=== PATIENT | female | born 1950 | race Two or more races ===

== ENCOUNTER 2024-07-15 22:35 | Emergency (ER) | payer MEDICARE, MEDICAID, SELFPAY ==
[2024-07-15 23:35] VITALS: BP 155/88; PULSE 68; RESP 18; TEMP 36.8; O2SAT 98
--- NOTE | 2024-07-15 23:49 | XR_ITS ---
Examination: Wrist, right 3 views Technique: Wrist AP, oblique, lateral 3 views Date and time of exam: July 16, 2024 0025 hrs. Indications: Patient fell today with injury to the wrist, wrist pain. Findings: Suspicious on the lateral view for nondisplaced fracture of the dorsal distal radius No displacement Carpal bones intact Impression: Recommend 1-2 day follow-up films of the wrist to exclude nondisplaced fracture dorsal distal radius
--- NOTE | 2024-07-15 23:49 | XR_ITS ---
Examination: CT cervical spine without contrast 2-D sagittal reconstructions 2-D coronal reconstructions 3-D reconstructions. Exam date and time:July 16, 2024 0019 hrs. Indications: Patient fell backwards with injury to the neck, neck pain CTDI:vol (mGy) 44.8 DLP: (mGycm) 866 Technique: Multiple 2 mm axial sections of the cervical spine have been obtained. The coronal and sagittal reconstructions have been obtained. 3-D reconstructions have been obtained. Low dose protocols were performed. One or more of the following dose reduction techniques were used; automated exposure control, adjustment of the mA and/or KV according to patient size, use of iterative reconstruction technique. Findings: Axial sections demonstrate intact base of the skull. C1 exhibit satisfactory relationship to the odontoid. No acute cervical vertebral body fracture seen. Alignment posterior spinous processes satisfactory. Impression: No acute cervical fracture.
--- NOTE | 2024-07-15 23:49 | XR_ITS ---
Examination: CT brain head without contrast. 2-D sagittal coronal reconstructions Date and time of exam:July 2024 0019 hrs. Indications: Patient fell today with injury to the back of the head, head pain CTDI: vol (mGy):44.8 DLP: (mGycm):866 Technique: Multiple CT axial sections of the brain have been obtained, 5 mm slice thickness. Contrast has not been administered. 2-D sagittal, coronal reconstructions have been obtained Low dose protocols were performed. One or more of the following dose reduction techniques were used; automated exposure control, adjustment of the mA and/or KV according to patient size, use of iterative reconstruction technique. Findings: No significant ventricular enlargement. Intra-axial or extra-axial hemorrhage density is not seen. No mass effect or midline shift Basal cisterns are not remarkable. Fourth ventricle is midline. Cranial vault intact. Impression: Negative for acute hemorrhage, mass effect or midline shift
--- NOTE | 2024-07-15 23:50 | PD.EDRME ---
Rapid Medical Screening Exam [facility] Arrival date/time: 07/15/24 22:35 74F with history of HTN presents to ED with head and R wrist pain after a dog barked and scared her, which made her fall. Chief Complaint: Fall Vital signs: Vital Signs Temperature 98.3 F 07/15/24 23:35 Pulse Rate 68 07/15/24 23:35 Respiratory Rate 18 07/15/24 23:35 Blood Pressure 155/88 H 07/15/24 23:35 Pulse Oximetry (%) 98 07/15/24 23:35 Oxygen Delivery Method Room Air 07/15/24 23:35
--- NOTE | 2024-07-16 01:44 | PRELIM_ITS ---
CT scan of the head without intravenous contrast (axial sections with sagittal and coronal reformats) July 16, 2024 0019 hours Clinical History: Fall. Findings: There is no evidence of intracranial hemorrhage, mass effect or midline shift. There are mild periventricular white matter hypodensities, likely representing chronic small vessel ischemia. There is mild volume loss. The calvarium is intact. There is moderate mucosal thickening in the left maxillary sinus. There is mild mucosal thickening in bilateral ethmoid sinuses. The mastoid air cells and the other visualized paranasal sinuses are clear. Impression: No evidence of intracranial hemorrhage, midline shift or calvarial fracture. Periventricular chronic small vessel ischemia and volume loss. Report Electronically Signed By: Wero Finney 07/16/2024 1:43:31 AM [EST]
--- NOTE | 2024-07-16 01:46 | PRELIM_ITS ---
CT scan of the cervical spine without intravenous contrast (axial sections with sagittal and coronal reformats) July 16, 2024 0019 hours Clinical History: Fall. Findings: The bones are osteopenic. There is no fracture or traumatic subluxation. Moderate degenerative changes are noted in the form of multilevel marginal osteophytes, decreased disc spaces and facet arthropathy. C3-C4 through C6-C7 disc osteophyte complexes are noted with associated uncinate hypertrophy and facet arthropathy causing moderate spinal canal and moderate to marked bilateral neural foraminal narrowing. The prevertebral soft tissues are unremarkable. Impression: No evidence of fracture or traumatic subluxation. Moderate degenerative changes as described above. Consider elective followup with MRI. Report Electronically Signed By: Wero Finney 07/16/2024 1:46:03 AM [EST]
[2024-07-16 01:57] VITALS: BP 163/90; PULSE 73; RESP 18; TEMP 36.8; O2SAT 98
[2024-07-16 01:59] VITALS: O2SAT 100
[2024-07-16 02:00] VITALS: BP 156/80; PULSE 70; RESP 16; O2SAT 99
--- NOTE | 2024-07-16 02:07 | EDNOTE_ITS ---
ED Fall Injury RME/HPI General Chief Complaint: Fall Stated Complaint: FELL, HIT HEAD, RIGHT WRIST INJURY Time Seen by Provider: 07/16/24 01:59 Arrival date/time: 07/15/24 22:35 RME / HPI RME / HPI Narrative: 07/15/24 22:35 74F with history of HTN presents to ED with head and R wrist pain after a dog barked and scared her, which made her fall. Dr. Barrios?s Main ED Evaluation: 74yo female with a history of HTN presents to the ED for a fall. Patient states she was getting out of a car when a dog scared her, reporting she stumbled back and fell. She states she hit her head, but denies any loss of consciousness. She endorses having right wrist pain and a posterior headache. She denies any neck pain, chest pain, abdominal pain, shortness of breath or any other associated symptoms. No known allergies. Related Data Previous Rx's ?Medication ?Instructions ?Recorded cyclobenzaprine 10 mg tablet 10 mg PO TID #30 tabs 02/23 ibuprofen 600 mg tablet 600 mg PO TID #30 tabs 08/14 acetaminophen 500 mg capsule 1,000 mg (2 x 500 mg) PO Q6H PRN 07/16/24 pain #40 caps acetaminophen 500 mg capsule 1,000 mg (2 x 500 mg) PO Q6H PRN 07/16/24 pain #40 caps ibuprofen 600 mg tablet 600 mg PO Q6H PRN pain #20 t abs 07/16/24 ibuprofen 600 mg tablet 600 mg PO Q6H PRN pain #20 t abs 07/16/24 Allergies Allergy/AdvReac Type Severity Reaction Status Date / Time No Known Allergies Allergy Verified 07/15/24 22:39 Review of Systems Review of Systems Systems Reviewed: All systems reviewed, normal except as documented Past Medical History Past Medical History CARDIAC: Positive Hypertension; Negative Congestive Heart Failure RESPIRATORY: Negative Chronic Obstructive Pulmonary Disease (COPD) GENITOURINARY: Negative Renal Disease ENDOCRINE: Negative Diabetes Mellitus Type 1 or Diabetes Mellitus Type 2 Social History SMOKING STATUS: Never smoker ED Exam Narrative Physical exam: GENERAL APPEARANCE: alert and oriented x 4, well-developed, well-nourished, no acute distress VITALS: All vitals were reviewed and the pulse ox is 99% on room air, which is normal according to my interpretation. HEENT: Normocephalic, atraumatic; pupils equal, round, reactive to light; EOMI; mucous membranes pink, moist; oropharynx clear NECK: Supple LUNGS: CTABL; no wheezes, no rales, no rhonchi HEART: Regular rate, regular rhythm; normal S1, S2; no murmurs ABDOMEN: non distended; normal BS; soft, no tenderness, no guarding, no rebound; no masses, no organomegaly, no hernia BACK: no CVA tenderness EXTREMITIES: mild swelling to the right wrist with tenderness, but no snuffbox tenderness or deformity; no edema NEUROLOGIC: awake; alert and oriented x4; cranial nerves II-XII grossly intact; no focal sensory or motor deficits PSYCHIATRIC: appropriate mood and affect SKIN: warm, dry, normal color; no rashes Course Quality Measures none Orders Category Date Time Status Miscellaneous Nursing Order NOW Care 07/16/24 02:[address] cervical spine wo con Stat Exams 07/15/24 23:[address] head/brain wo con Stat Exams 07/15/24 23:49 Taken XR wrist comp RT min 3V Stat Exams 07/15/24 23:49 Taken Acetaminophen Tab [Tylenol ES Tab] Med 07/16/24 02:13 Discontinued 1,000 mg PO X1 ONE Ibuprofen Tab [Motrin Tab] Med 07/16/24 02:13 Discontinued 600 mg PO X1 ONE Vital Signs Vital signs: Vital Signs Temperature 98.3 F 07/15/24 23:35 Pulse Rate 68 07/15/24 23:35 Respiratory Rate 18 07/15/24 23:35 Blood Pressure 155/88 H 07/15/24 23:35 Pulse Oximetry (%) 98 07/15/24 23:35 Oxygen Delivery Method Room Air 07/15/24 23:35 Fall MDM Narrative MDM Narrative:: Scribe Attestation: 07/16/24 Lee Ann Houser am scribing for and in the presence of Dr. Barrios. Patient data External records reviewed:: [facility] previous records (Per chart review, patient has no relevant previous ED visits.) Clinical information provided by:: patient Social determinants that could affect healthcare access:: none Patient has the following chronic illnesses:: HTN How is presenting disease/condition affected by chronic disease/condition?: uneffected by Evaluation data The following diagnostics were reviewed and interpreted by me:: radiology exam(s) Lab and/or radiology exams considered but not ordered:: none Interpretation Summary: Right wrist x-ray is negative for any fractures, dislocations or contusions, according to my interpretation. ------ [facility] Preliminary Report Draft Patient: TOÑO FREDERICK [facility]. Record#: [id number] Birthdate: 1950 Age/Sex: 74 / F Location: [facility] Attending Dr: Ordering Physician: Date of Service: Procedure(s): Accession Number(s): cc: ~ CT scan of the head without intravenous contrast (axial sections with sagittal and coronal reformats) July 16, 2024 0019 hours Clinical History: Fall. Findings: There is no evidence of intracranial hemorrhage, mass effect or midline shift. There are mild periventricular white matter hypodensities, likely representing chronic small vessel ischemia. There is mild volume loss. The calvarium is intact. There is moderate mucosal thickening in the left maxillary sinus. There is mild mucosal thickening in bilateral ethmoid sinuses. The mastoid air cells and the other visualized paranasal sinuses are clear. Impression: No evidence of intracranial hemorrhage, midline shift or calvarial fracture. Periventricular chronic small vessel ischemia and volume loss. Report Electronically Signed By: Wero Finney 07/16/2024 1:43:31 AM [EST] [facility] Preliminary Report Draft Patient: TOÑO FREDERICK [facility]. Record#: [id number] Birthdate: 1950 Age/Sex: 74 / F Location: [facility] Attending Dr: Ordering Physician: Date of Service: Procedure(s): Accession Number(s): cc: ~ CT scan of the cervical spine without intravenous contrast (axial sections with sagittal and coronal reformats) July 16, 2024 0019 hours Clinical History: Fall. Findings: The bones are osteopenic. There is no fracture or traumatic subluxation. Moderate degenerative changes are noted in the form of multilevel marginal osteophytes, decreased disc spaces and facet arthropathy. C3-C4 through C6-C7 disc osteophyte complexes are noted with associated uncinate hypertrophy and facet arthropathy causing moderate spinal canal and moderate to marked bilateral neural foraminal narrowing. The prevertebral soft tissues are unremarkable. Impression: No evidence of fracture or traumatic subluxation. Moderate degenerative changes as described above. Consider elective followup with MRI. Report Electronically Signed By: Wero Finney 07/16/2024 1:46:03 AM [EST Medications / Prescriptions Medications or Prescriptions considered but not ordered:: none Medication administrations:: Medication Administration History Discontinued Medications Acetaminophen (Acetaminophen 500 Mg Tablet) 1,000 mg PO X1 ONE Stop: 07/16/24 02:14 Last Admin: 07/16/24 02:25 Dose: 1,000 mg Documented By: ABBY Ibuprofen (Ibuprofen Tab 600 Mg Tablet) 600 mg PO X1 ONE Stop: 07/16/24 02:14 Last Admin: 07/16/24 02:25 Dose: 600 mg Documented By: ABBY see above Consultations Consultation(s) initiated? (list below): No Diagnosis Fall Differential Diagnosis: other (fracture, dislocation, contusion, ICH) Most likely diagnosis given after review of the tests above:: see below Admission Indicated Admission indicated?: not indicated Admission Request Was there a request for admission?: No Disposition Plan Disposition Plan: Discharge Discharge Attestation Discharge Attestation: The patient and all family members were given an opportunity to ask questions and understood the discharge instructions. Discharge instructions specifically effects, indications for sooner follow up or return to the emergency department, and the expected course of current diagnosis. Patient condition: Stable Discharge Plan Plan Patient Disposition: HOME (Self Care) Disposition Comment: Stable for discharge Patient condition on transfer: Stable Prescriptions/Referrals Prescriptions/Med Rec: New ibuprofen 600 mg tablet 600 mg PO Q6H PRN (Reason: pain) Qty: 20 0RF acetaminophen 500 mg capsule 1,000 mg PO Q6H PRN (Reason: pain) Qty: 40 0RF acetaminophen 500 mg capsule 1,000 mg PO Q6H PRN (Reason: pain) Qty: 40 0RF ibuprofen 600 mg tablet 600 mg PO Q6H PRN (Reason: pain) Qty: 20 0RF No Action ibuprofen 600 mg tablet 600 mg PO TID Qty: 30 0RF cyclobenzaprine 10 mg tablet 10 mg PO TID Qty: 30 0RF Referrals: [facility] [Outside] - In 1 week Problem List Clinical Impression: Ground-level fall, Right wrist sprain Patient/Caregiver Discharge Instructions Discharge Activity: activity as tolerated Education Materials: ED ANDRY Wrap, ED Mechanical Fall, ED Wrist Sprain Additional Instructions: Please return to the emergency department for any worsening or any further medical problems Otherwise you should follow-up with your primary care doctor or in the [facility] within the next several days Print Language: Tajik Stand Alone Forms: [facility] Award Info., Patient Portal Info Letter
[2024-07-16] MEDS: IBUPROFEN TAB 600 MG TABLET PO (02:25)
[2024-07-16] MEDS: ACETAMINOPHEN 500 MG TABLET 1000 MG PO (02:25)
== END 2024-07-16 02:32 | disposition home or self-care (01) ==
LOC: SERX 07-16 02:45
PROVIDERS: Emergency Provider Emergency Medicine
DX: S63.501A Unspecified sprain of right wrist, initial encounter (principal); S09.90XA Unspecified injury of head, initial encounter; M47.812 Spondylosis without myelopathy or radiculopathy, cervical region; M25.78 Osteophyte, vertebrae; I10 Essential (primary) hypertension; W01.0XXA Fall on same level from slipping, tripping and stumbling without subsequent striking against object, initial encounter
CPT/HCPCS: 70450; 72125; 73110; 99284; A9270